=== PATIENT | male | born 1940 | race Caucasian/White ===

== ENCOUNTER 2020-12-27 09:56 | Inpatient (IN) ==
[2020-12-29] MEDS: Acetaminophen 325 MG TABLET PO PRN ×2 (00:01→20:58)
[2020-12-29 05:14] LABS: Basophils % 0.7 %; Eosinophils # 0.3 K/mcL (0.0-0.6); Eosinophils % 7.2 %; Hematocrit 39.6 % (37.5-50.1); Hemoglobin 12.9 g/dL (12.9-16.9); Immature Granulocytes % 0.5 % (0-4); Lymphocytes # 0.5 K/mcL (0.6-4.6); Lymphocytes % 11.8 %; Mean Corpuscular HGB Conc 32.6 g/dL (31.6-35.5); Mean Corpuscular Hemoglobin 29.7 pg (28.0-33.3); Mean Platelet Volume 10.3 fL (9.4-12.4); Monocytes # 0.4 K/mcL (0.0-1.3); Monocytes % 9.1 %; Platelet Count 159 K/mcL (140-400); Red Blood Count 4.35 M/mcL (4.19-5.50); Red Cell Distribution Width 14.2 % (11.5-14.5); Segmented Neutrophils % 70.7 %; White Blood Count 4.2 K/mcL (4.3-11.1)
[2020-12-29 05:31] LABS: BUN/Creatinine Ratio 19 (6-26); Blood Urea Nitrogen 16 mg/dL (8-23); Calcium 8.5 mg/dL (8.6-10.3); Carbon Dioxide 31 mEq/L (23-29); Chloride 106 mEq/L (98-107); Glucose 100 mg/dL (70-105); Osmolality,Calculated 297 (280-300); Potassium 3.3 mEq/L (3.5-5.1); Sodium 143 mEq/L (136-145); eGFR For African Americans > 60 (> 60); eGFR For Non-African Americans > 60 (> 60)
[2020-12-29] MEDS: *HR* Enoxaparin 40 MG/0.4 ML SYRINGE SQ SCH ×2 (06:54→08:33)
[2020-12-29] MEDS: NIFEdipine XL (24 HR) 60 MG TAB.ER.24 PO SCH (08:33)
[2020-12-29] MEDS: lisinopriL 20 MG TABLET PO SCH (08:33)
[2020-12-29] MEDS: Sennosides/Docusate Sodium TABLET PO SCH ×2 (08:33→20:58)
[2020-12-29] MEDS: Cholecalciferol (D-3) 1,000 UNIT (25MCG) TABLET PO SCH (08:33)
[2020-12-29] MEDS: carvediloL 25 MG TABLET PO SCH ×2 (08:33→16:55)
[2020-12-30] MEDS: *HR* Enoxaparin 40 MG/0.4 ML SYRINGE SQ SCH (05:15)
[2020-12-30] MEDS: carvediloL 25 MG TABLET PO SCH ×2 (07:54→16:48)
[2020-12-30] MEDS: lisinopriL 20 MG TABLET PO SCH (07:54)
[2020-12-30] MEDS: NIFEdipine XL (24 HR) 60 MG TAB.ER.24 PO SCH (07:54)
[2020-12-30] MEDS: Cholecalciferol (D-3) 1,000 UNIT (25MCG) TABLET PO SCH (07:54)
[2020-12-30] MEDS: Sennosides/Docusate Sodium TABLET PO SCH ×2 (07:54→20:36)
[2020-12-30] MEDS: Acetaminophen 325 MG TABLET PO PRN (18:07)
[2020-12-30] MEDS: tiZANidine 4 MG TABLET PO PRN (20:36)
[2020-12-31 05:17] LABS: Hematocrit 39.7 % (37.5-50.1); Hemoglobin 12.7 g/dL (12.9-16.9); Mean Corpuscular Hemoglobin 29.2 pg (28.0-33.3); Mean Corpuscular Volume 91.3 fL (83.0-100.0); Platelet Count 151 K/mcL (140-400); Red Blood Count 4.35 M/mcL (4.19-5.50); Red Cell Distribution Width 14.1 % (11.5-14.5); White Blood Count 3.6 K/mcL (4.3-11.1)
[2020-12-31 05:30] LABS: Alanine Aminotransferase 35 Units/L (7-52); Albumin/Globulin Ratio 1.5 (1.1-2.2); Alkaline Phosphatase 74 Units/L (34-104); Aspartate Amino Transferase 19 Units/L (13-39); BUN/Creatinine Ratio 20 (6-26); Bilirubin,Total 0.9 mg/dL (0.3-1.0); Blood Urea Nitrogen 22 mg/dL (8-23); Calcium 8.6 mg/dL (8.6-10.3); Carbon Dioxide 29 mEq/L (23-29); Chloride 108 mEq/L (98-107); Glucose 99 mg/dL (70-105); Osmolality,Calculated 297 (280-300); Sodium 142 mEq/L (136-145); eGFR For African Americans > 60 (> 60); eGFR For Non-African Americans > 60 (> 60)
[2020-12-31] MEDS: Cholecalciferol (D-3) 1,000 UNIT (25MCG) TABLET PO SCH (09:01)
[2020-12-31] MEDS: NIFEdipine XL (24 HR) 60 MG TAB.ER.24 PO SCH (09:01)
[2020-12-31] MEDS: Sennosides/Docusate Sodium TABLET PO SCH ×2 (09:02→20:28)
[2020-12-31] MEDS: carvediloL 25 MG TABLET PO SCH ×2 (09:02→16:31)
[2020-12-31] MEDS: lisinopriL 20 MG TABLET PO SCH (09:03)
[2020-12-31 11:39] LABS: Bilirubin,Urine Negative (Negative); Blood,Urine Trace-intact (Negative); Clarity,Urine Clear (Clear); Color,Urine Yellow (Yellow); Glucose,Urine (UA) Normal (Normal); Ketones,Urine Negative (Negative); Leukocyte Esterase,Urine Negative (Negative); Nitrite,Urine Negative (Negative); Protein,Urine Negative (Neg-Trace); Urobilinogen,Urine Normal (Normal)
[2020-12-31 12:21] LABS: WBC,Urine 0-3 per hpf (0-3)
[2020-12-31] MEDS: Acetaminophen 325 MG TABLET PO PRN (16:31)
[2020-12-31] MEDS: tiZANidine 4 MG TABLET PO PRN (20:29)
[2020-12-31] MEDS: chlorproMAZINE 25 MG TABLET PO PRN (20:29)
[2021-01-01] MEDS: Acetaminophen 325 MG TABLET PO PRN ×3 (05:40→21:28)
[2021-01-01] MEDS: lisinopriL 20 MG TABLET PO SCH (08:03)
[2021-01-01] MEDS: NIFEdipine XL (24 HR) 60 MG TAB.ER.24 PO SCH (08:03)
[2021-01-01] MEDS: Cholecalciferol (D-3) 1,000 UNIT (25MCG) TABLET PO SCH (08:04)
[2021-01-01] MEDS: carvediloL 25 MG TABLET PO SCH ×2 (08:04→15:23)
[2021-01-01] MEDS: Sennosides/Docusate Sodium TABLET PO SCH ×2 (08:04→21:28)
[2021-01-01] MEDS: tiZANidine 4 MG TABLET PO PRN (21:29)
[2021-01-02] MEDS: Cholecalciferol (D-3) 1,000 UNIT (25MCG) TABLET PO SCH (08:59)
[2021-01-02] MEDS: Sennosides/Docusate Sodium TABLET PO SCH ×2 (08:59→20:54)
[2021-01-02] MEDS: carvediloL 25 MG TABLET PO SCH ×2 (08:59→16:26)
[2021-01-02] MEDS: lisinopriL 20 MG TABLET PO SCH (08:59)
[2021-01-02] MEDS: Acetaminophen 325 MG TABLET PO PRN ×2 (08:59→17:57)
[2021-01-02] MEDS: NIFEdipine XL (24 HR) 60 MG TAB.ER.24 PO SCH (08:59)
[2021-01-02] MEDS: tiZANidine 4 MG TABLET PO PRN (19:14)
[2021-01-03] MEDS: chlorproMAZINE 25 MG TABLET PO PRN (02:19)
[2021-01-03] MEDS: Cholecalciferol (D-3) 1,000 UNIT (25MCG) TABLET PO SCH (08:44)
[2021-01-03] MEDS: lisinopriL 20 MG TABLET PO SCH (08:44)
[2021-01-03] MEDS: carvediloL 25 MG TABLET PO SCH ×2 (08:44→17:53)
[2021-01-03] MEDS: Sennosides/Docusate Sodium TABLET PO SCH ×2 (08:44→21:06)
[2021-01-03] MEDS: NIFEdipine XL (24 HR) 60 MG TAB.ER.24 PO SCH (08:44)
[2021-01-03] MEDS: Acetaminophen 325 MG TABLET PO PRN (15:14)
[2021-01-03] MEDS: tiZANidine 4 MG TABLET PO PRN (21:06)
[2021-01-04] MEDS: Acetaminophen 325 MG TABLET PO PRN ×3 (05:11→19:31)
[2021-01-04] MEDS: lisinopriL 20 MG TABLET PO SCH (08:44)
[2021-01-04] MEDS: NIFEdipine XL (24 HR) 60 MG TAB.ER.24 PO SCH (08:44)
[2021-01-04] MEDS: Sennosides/Docusate Sodium TABLET PO SCH ×2 (08:44→19:30)
[2021-01-04] MEDS: carvediloL 25 MG TABLET PO SCH ×2 (08:44→17:12)
[2021-01-04] MEDS: Cholecalciferol (D-3) 1,000 UNIT (25MCG) TABLET PO SCH (08:44)
[2021-01-04] MEDS: tiZANidine 4 MG TABLET PO PRN (19:31)
[2021-01-05] MEDS: Acetaminophen 325 MG TABLET PO PRN ×3 (03:36→18:59)
[2021-01-05] MEDS: lisinopriL 20 MG TABLET PO SCH (08:20)
[2021-01-05] MEDS: NIFEdipine XL (24 HR) 60 MG TAB.ER.24 PO SCH (08:20)
[2021-01-05] MEDS: Cholecalciferol (D-3) 1,000 UNIT (25MCG) TABLET PO SCH (08:20)
[2021-01-05] MEDS: carvediloL 25 MG TABLET PO SCH ×2 (08:20→16:58)
[2021-01-05] MEDS: Sennosides/Docusate Sodium TABLET PO SCH ×2 (08:20→19:52)
[2021-01-05] MEDS: tiZANidine 4 MG TABLET PO PRN (19:52)
[2021-01-06] MEDS: Acetaminophen 325 MG TABLET PO PRN ×3 (01:07→18:00)
[2021-01-06] MEDS: lisinopriL 20 MG TABLET PO SCH (08:32)
[2021-01-06] MEDS: Sennosides/Docusate Sodium TABLET PO SCH ×2 (08:32→21:03)
[2021-01-06] MEDS: NIFEdipine XL (24 HR) 60 MG TAB.ER.24 PO SCH (08:32)
[2021-01-06] MEDS: carvediloL 25 MG TABLET PO SCH ×2 (08:33→16:41)
[2021-01-06] MEDS: Cholecalciferol (D-3) 1,000 UNIT (25MCG) TABLET PO SCH (08:33)
[2021-01-06] MEDS ORDERED: Gabapentin 300 MG CAPSULE PO ONE (10:53)
[2021-01-06] MEDS: tiZANidine 4 MG TABLET PO PRN (21:03)
[2021-01-06] MEDS: chlorproMAZINE 25 MG TABLET PO PRN (21:03)
[2021-01-07] MEDS: lisinopriL 20 MG TABLET PO SCH (08:29)
[2021-01-07] MEDS: Cholecalciferol (D-3) 1,000 UNIT (25MCG) TABLET PO SCH (08:29)
[2021-01-07] MEDS: carvediloL 25 MG TABLET PO SCH ×2 (08:29→17:07)
[2021-01-07] MEDS: NIFEdipine XL (24 HR) 60 MG TAB.ER.24 PO SCH (08:29)
[2021-01-07] MEDS: Sennosides/Docusate Sodium TABLET PO SCH ×2 (08:29→20:13)
[2021-01-07] MEDS: tiZANidine 4 MG TABLET PO PRN ×2 (11:45→20:13)
[2021-01-07] MEDS: Acetaminophen 325 MG TABLET PO PRN ×2 (11:45→17:06)
[2021-01-07] MEDS: polyethylene glycoL 3350 17 GM POWD.PACK PO SCH (17:07)
[2021-01-08] MEDS: Acetaminophen 325 MG TABLET PO PRN ×3 (04:17→18:59)
[2021-01-08 06:04] LABS: Basophils % 1.1 %; Eosinophils # 0.3 K/mcL (0.0-0.6); Eosinophils % 8.1 %; Hematocrit 39.6 % (37.5-50.1); Hemoglobin 12.8 g/dL (12.9-16.9); Immature Granulocytes % 0.6 % (0-4); Lymphocytes # 0.5 K/mcL (0.6-4.6); Lymphocytes % 13.5 %; Mean Corpuscular HGB Conc 32.3 g/dL (31.6-35.5); Mean Corpuscular Hemoglobin 29.6 pg (28.0-33.3); Mean Corpuscular Volume 91.5 fL (83.0-100.0); Mean Platelet Volume 10.7 fL (9.4-12.4); Monocytes # 0.4 K/mcL (0.0-1.3); Monocytes % 11.5 %; Platelet Count 164 K/mcL (140-400); Red Blood Count 4.33 M/mcL (4.19-5.50); Red Cell Distribution Width 14.3 % (11.5-14.5); Segmented Neutrophils % 65.2 %; White Blood Count 3.6 K/mcL (4.3-11.1)
[2021-01-08 06:15] LABS: Neutrophils # 2.4 K/mcL (1.6-8.9)
[2021-01-08 06:24] LABS: BUN/Creatinine Ratio 20 (6-26); Blood Urea Nitrogen 16 mg/dL (8-23); Calcium 8.8 mg/dL (8.6-10.3); Carbon Dioxide 27 mEq/L (23-29); Chloride 107 mEq/L (98-107); Glucose 105 mg/dL (70-105); Osmolality,Calculated 294 (280-300); Potassium 3.8 mEq/L (3.5-5.1); Sodium 141 mEq/L (136-145); eGFR For African Americans > 60 (> 60); eGFR For Non-African Americans > 60 (> 60)
[2021-01-08] MEDS: Cholecalciferol (D-3) 1,000 UNIT (25MCG) TABLET PO SCH (09:33)
[2021-01-08] MEDS: NIFEdipine XL (24 HR) 60 MG TAB.ER.24 PO SCH (09:33)
[2021-01-08] MEDS: carvediloL 25 MG TABLET PO SCH ×2 (09:33→16:27)
[2021-01-08] MEDS: lisinopriL 20 MG TABLET PO SCH (09:34)
[2021-01-08] MEDS: Sennosides/Docusate Sodium TABLET PO SCH ×2 (09:34→21:29)
[2021-01-08] MEDS: polyethylene glycoL 3350 17 GM POWD.PACK PO SCH (09:34)
[2021-01-08] MEDS: tiZANidine 4 MG TABLET PO PRN ×2 (12:54→21:29)
[2021-01-08] MEDS: chlorproMAZINE 25 MG TABLET PO PRN (21:29)
[2021-01-09] MEDS: Cholecalciferol (D-3) 1,000 UNIT (25MCG) TABLET PO SCH (09:05)
[2021-01-09] MEDS: tiZANidine 4 MG TABLET PO PRN ×2 (09:05→16:30)
[2021-01-09] MEDS: lisinopriL 20 MG TABLET PO SCH (09:05)
[2021-01-09] MEDS: carvediloL 25 MG TABLET PO SCH ×2 (09:05→16:30)
[2021-01-09] MEDS: Sennosides/Docusate Sodium TABLET PO SCH ×2 (09:05→22:41)
[2021-01-09] MEDS: Acetaminophen 325 MG TABLET PO PRN ×3 (09:05→22:41)
[2021-01-09] MEDS: NIFEdipine XL (24 HR) 60 MG TAB.ER.24 PO SCH (09:05)
[2021-01-09] MEDS: polyethylene glycoL 3350 17 GM POWD.PACK PO SCH (09:06)
[2021-01-09] MEDS ORDERED: 0.9 % Sodium Chloride 1,000 ML IVC SCH (19:00)
[2021-01-09 19:13] LABS: Basophils # 0.1 K/mcL (0.0-0.2); Basophils % 1.3 %; Eosinophils # 0.3 K/mcL (0.0-0.6); Eosinophils % 6.7 %; Hematocrit 37.5 % (37.5-50.1); Hemoglobin 12.1 g/dL (12.9-16.9); Immature Granulocytes % 0.5 % (0-4); Lymphocytes # 0.5 K/mcL (0.6-4.6); Lymphocytes % 13.2 %; Mean Corpuscular HGB Conc 32.3 g/dL (31.6-35.5); Mean Corpuscular Hemoglobin 29.3 pg (28.0-33.3); Mean Corpuscular Volume 90.8 fL (83.0-100.0); Mean Platelet Volume 10.7 fL (9.4-12.4); Monocytes # 0.4 K/mcL (0.0-1.3); Monocytes % 11.6 %; Neutrophils # 2.5 K/mcL (1.6-8.9); Platelet Count 160 K/mcL (140-400); Red Blood Count 4.13 M/mcL (4.19-5.50); Red Cell Distribution Width 14.3 % (11.5-14.5); Segmented Neutrophils % 66.7 %; White Blood Count 3.7 K/mcL (4.3-11.1)
[2021-01-09 19:24] LABS: BUN/Creatinine Ratio 22 (6-26); Blood Urea Nitrogen 17 mg/dL (8-23); Calcium 8.5 mg/dL (8.6-10.3); Carbon Dioxide 26 mEq/L (23-29); Chloride 109 mEq/L (98-107); Glucose 143 mg/dL (70-105); Osmolality,Calculated 296 (280-300); Potassium 3.9 mEq/L (3.5-5.1); Sodium 141 mEq/L (136-145); eGFR For African Americans > 60 (> 60); eGFR For Non-African Americans > 60 (> 60)
[2021-01-09] MEDS: chlorproMAZINE 25 MG TABLET PO PRN (22:41)
[2021-01-10] MEDS: carvediloL 25 MG TABLET PO SCH ×2 (08:12→15:48)
[2021-01-10] MEDS: lisinopriL 20 MG TABLET PO SCH (08:12)
[2021-01-10] MEDS: Sennosides/Docusate Sodium TABLET PO SCH ×2 (08:12→20:55)
[2021-01-10] MEDS: Cholecalciferol (D-3) 1,000 UNIT (25MCG) TABLET PO SCH (08:12)
[2021-01-10] MEDS: NIFEdipine XL (24 HR) 60 MG TAB.ER.24 PO SCH (08:12)
[2021-01-10] MEDS: polyethylene glycoL 3350 17 GM POWD.PACK PO SCH (08:12)
[2021-01-10] MEDS: Acetaminophen 325 MG TABLET PO PRN ×2 (13:26→20:55)
[2021-01-10] MEDS: Gabapentin 100 MG CAPSULE PO SCH ×2 (15:48→20:55)
[2021-01-11] MEDS: tiZANidine 4 MG TABLET PO PRN (00:28)
[2021-01-11] MEDS: Sennosides/Docusate Sodium TABLET PO SCH ×2 (08:10→20:12)
[2021-01-11] MEDS: lisinopriL 20 MG TABLET PO SCH (08:10)
[2021-01-11] MEDS: Cholecalciferol (D-3) 1,000 UNIT (25MCG) TABLET PO SCH (08:10)
[2021-01-11] MEDS: polyethylene glycoL 3350 17 GM POWD.PACK PO SCH (08:10)
[2021-01-11] MEDS: NIFEdipine XL (24 HR) 60 MG TAB.ER.24 PO SCH (08:10)
[2021-01-11] MEDS: Gabapentin 100 MG CAPSULE PO SCH ×3 (08:10→20:13)
[2021-01-11] MEDS: carvediloL 25 MG TABLET PO SCH ×2 (08:10→16:45)
[2021-01-11] MEDS: Acetaminophen 325 MG TABLET PO PRN ×2 (12:38→18:38)
[2021-01-12] MEDS: Cholecalciferol (D-3) 1,000 UNIT (25MCG) TABLET PO SCH (08:46)
[2021-01-12] MEDS: Sennosides/Docusate Sodium TABLET PO SCH ×2 (08:46→20:06)
[2021-01-12] MEDS: NIFEdipine XL (24 HR) 60 MG TAB.ER.24 PO SCH (08:46)
[2021-01-12] MEDS: carvediloL 25 MG TABLET PO SCH ×2 (08:46→16:59)
[2021-01-12] MEDS: polyethylene glycoL 3350 17 GM POWD.PACK PO SCH (08:46)
[2021-01-12] MEDS: Gabapentin 100 MG CAPSULE PO SCH ×4 (08:47→20:06)
[2021-01-12] MEDS: tiZANidine 4 MG TABLET PO PRN (08:47)
[2021-01-12] MEDS: lisinopriL 20 MG TABLET PO SCH (08:47)
[2021-01-12] MEDS ORDERED: 0.9 % Sodium Chloride 1,000 ML ONE ×2 (10:10→11:51)
[2021-01-12 10:26] LABS: Hematocrit 38.2 % (37.5-50.1); Hemoglobin 12.2 g/dL (12.9-16.9); Mean Corpuscular HGB Conc 31.9 g/dL (31.6-35.5); Mean Corpuscular Hemoglobin 29.1 pg (28.0-33.3); Mean Corpuscular Volume 91.2 fL (83.0-100.0); Mean Platelet Volume 10.4 fL (9.4-12.4); Platelet Count 196 K/mcL (140-400); Red Blood Count 4.19 M/mcL (4.19-5.50); Red Cell Distribution Width 14.1 % (11.5-14.5); White Blood Count 4.3 K/mcL (4.3-11.1)
[2021-01-12] MEDS ORDERED: 0.9 % Sodium Chloride 500 ML IV ONE (10:30)
[2021-01-12 10:37] LABS: Alanine Aminotransferase 27 Units/L (7-52); Albumin 3.2 g/dL (3.5-5.7); Albumin/Globulin Ratio 1.6 (1.1-2.2); Alkaline Phosphatase 79 Units/L (34-104); Aspartate Amino Transferase 14 Units/L (13-39); BUN/Creatinine Ratio 20 (6-26); Bilirubin,Total 0.8 mg/dL (0.3-1.0); Blood Urea Nitrogen 18 mg/dL (8-23); Calcium 8.4 mg/dL (8.6-10.3); Carbon Dioxide 23 mEq/L (23-29); Chloride 107 mEq/L (98-107); Glucose 151 mg/dL (70-105); Magnesium 1.7 mg/dL (1.6-2.6); Osmolality,Calculated 291 (280-300); Potassium 3.9 mEq/L (3.5-5.1); Sodium 138 mEq/L (136-145); Total Protein 5.2 g/dL (6.4-8.9); eGFR For African Americans > 60 (> 60); eGFR For Non-African Americans > 60 (> 60)
[2021-01-12] MEDS ORDERED: 0.9 % Sodium Chloride 500 ML IVC PRN (10:54)
[2021-01-12 11:11] LABS: ABG Base Excess 0 mEq/L (-2 to 3); ABG HCO3 26 mEq/L (21-27); ABG Oxygen Saturation 97 % (95-98); ABG PCO2 50 mmHg (35-45); ABG PH 7.33 pH Units (7.32-7.45); ABG PO2 96 mmHg (85-104); ABG TCO2 28 mEq/L (20-26)
[2021-01-12] MEDS ORDERED: 0.9 % Sodium Chloride 1,000 ML IVC SCH ×2 (11:45→17:34)
[2021-01-12] MEDS ORDERED: carvediloL 25 MG TABLET PO SCH (17:00)
[2021-01-12] MEDS: Acetaminophen 325 MG TABLET PO PRN ×2 (17:46→22:30)
[2021-01-13] MEDS: carvediloL 25 MG TABLET PO SCH ×2 (08:32→17:03)
[2021-01-13] MEDS: Gabapentin 100 MG CAPSULE PO SCH ×3 (08:33→20:56)
[2021-01-13] MEDS: Cholecalciferol (D-3) 1,000 UNIT (25MCG) TABLET PO SCH (08:33)
[2021-01-13] MEDS: NIFEdipine XL (24 HR) 60 MG TAB.ER.24 PO SCH (08:33)
[2021-01-13] MEDS: lisinopriL 20 MG TABLET PO SCH (08:34)
[2021-01-13] MEDS: polyethylene glycoL 3350 17 GM POWD.PACK PO SCH (08:34)
[2021-01-13] MEDS: Sennosides/Docusate Sodium TABLET PO SCH ×2 (08:34→20:56)
[2021-01-13] MEDS: Acetaminophen 325 MG TABLET PO PRN ×2 (17:35→20:55)
[2021-01-14] MEDS: Acetaminophen 325 MG TABLET PO PRN ×3 (02:56→23:58)
[2021-01-14] MEDS: polyethylene glycoL 3350 17 GM POWD.PACK PO SCH (08:27)
[2021-01-14] MEDS: Gabapentin 100 MG CAPSULE PO SCH ×3 (08:29→20:43)
[2021-01-14] MEDS: NIFEdipine XL (24 HR) 60 MG TAB.ER.24 PO SCH (08:29)
[2021-01-14] MEDS: lisinopriL 20 MG TABLET PO SCH (08:29)
[2021-01-14] MEDS: Cholecalciferol (D-3) 1,000 UNIT (25MCG) TABLET PO SCH (08:29)
[2021-01-14] MEDS: Sennosides/Docusate Sodium TABLET PO SCH ×2 (08:29→20:43)
[2021-01-14] MEDS: carvediloL 25 MG TABLET PO SCH ×2 (08:30→15:51)
[2021-01-15] MEDS: polyethylene glycoL 3350 17 GM POWD.PACK PO SCH (08:39)
[2021-01-15] MEDS: carvediloL 25 MG TABLET PO SCH ×2 (08:40→16:53)
[2021-01-15] MEDS: NIFEdipine XL (24 HR) 60 MG TAB.ER.24 PO SCH (08:40)
[2021-01-15] MEDS: Gabapentin 100 MG CAPSULE PO SCH ×3 (08:40→20:32)
[2021-01-15] MEDS: Cholecalciferol (D-3) 1,000 UNIT (25MCG) TABLET PO SCH (08:40)
[2021-01-15] MEDS: lisinopriL 20 MG TABLET PO SCH (08:40)
[2021-01-15] MEDS: Sennosides/Docusate Sodium TABLET PO SCH ×2 (08:40→20:32)
[2021-01-15] MEDS: Acetaminophen 325 MG TABLET PO PRN ×2 (11:43→20:32)
[2021-01-16] MEDS: Sennosides/Docusate Sodium TABLET PO SCH ×2 (08:56→19:56)
[2021-01-16] MEDS: Cholecalciferol (D-3) 1,000 UNIT (25MCG) TABLET PO SCH (08:56)
[2021-01-16] MEDS: carvediloL 25 MG TABLET PO SCH ×2 (08:56→17:02)
[2021-01-16] MEDS: polyethylene glycoL 3350 17 GM POWD.PACK PO SCH (08:56)
[2021-01-16] MEDS: lisinopriL 20 MG TABLET PO SCH (08:57)
[2021-01-16] MEDS: Gabapentin 100 MG CAPSULE PO SCH ×3 (08:57→19:56)
[2021-01-16] MEDS: NIFEdipine XL (24 HR) 60 MG TAB.ER.24 PO SCH (08:57)
[2021-01-16] MEDS: Acetaminophen 325 MG TABLET PO PRN (19:56)
[2021-01-17] MEDS: NIFEdipine XL (24 HR) 60 MG TAB.ER.24 PO SCH (08:05)
[2021-01-17] MEDS: Gabapentin 100 MG CAPSULE PO SCH ×3 (08:05→20:09)
[2021-01-17] MEDS: Sennosides/Docusate Sodium TABLET PO SCH ×2 (08:06→20:08)
[2021-01-17] MEDS: lisinopriL 20 MG TABLET PO SCH (08:06)
[2021-01-17] MEDS: Cholecalciferol (D-3) 1,000 UNIT (25MCG) TABLET PO SCH (08:06)
[2021-01-17] MEDS: polyethylene glycoL 3350 17 GM POWD.PACK PO SCH (08:06)
[2021-01-17] MEDS: carvediloL 25 MG TABLET PO SCH ×2 (08:06→16:35)
[2021-01-17] MEDS: Acetaminophen 325 MG TABLET PO PRN (20:10)
[2021-01-18 04:46] LABS: Hematocrit 39.3 % (37.5-50.1); Hemoglobin 12.9 g/dL (12.9-16.9); Mean Corpuscular HGB Conc 32.8 g/dL (31.6-35.5); Mean Corpuscular Hemoglobin 29.5 pg (28.0-33.3); Mean Corpuscular Volume 89.7 fL (83.0-100.0); Mean Platelet Volume 10.4 fL (9.4-12.4); Platelet Count 176 K/mcL (140-400); Red Blood Count 4.38 M/mcL (4.19-5.50); Red Cell Distribution Width 14.1 % (11.5-14.5); White Blood Count 3.9 K/mcL (4.3-11.1)
[2021-01-18] MEDS: Acetaminophen 325 MG TABLET PO PRN ×3 (04:56→22:39)
[2021-01-18 05:02] LABS: Alanine Aminotransferase 19 Units/L (7-52); Albumin 3.3 g/dL (3.5-5.7); Albumin/Globulin Ratio 1.7 (1.1-2.2); Alkaline Phosphatase 93 Units/L (34-104); Aspartate Amino Transferase 12 Units/L (13-39); BUN/Creatinine Ratio 22 (6-26); Bilirubin,Total 1.2 mg/dL (0.3-1.0); Blood Urea Nitrogen 17 mg/dL (8-23); Calcium 8.4 mg/dL (8.6-10.3); Carbon Dioxide 27 mEq/L (23-29); Chloride 107 mEq/L (98-107); Glucose 100 mg/dL (70-105); Magnesium 1.9 mg/dL (1.6-2.6); Osmolality,Calculated 292 (280-300); Potassium 3.7 mEq/L (3.5-5.1); Sodium 140 mEq/L (136-145); Total Protein 5.3 g/dL (6.4-8.9); eGFR For African Americans > 60 (> 60); eGFR For Non-African Americans > 60 (> 60)
[2021-01-18] MEDS: NIFEdipine XL (24 HR) 60 MG TAB.ER.24 PO SCH (08:26)
[2021-01-18] MEDS: Cholecalciferol (D-3) 1,000 UNIT (25MCG) TABLET PO SCH (08:26)
[2021-01-18] MEDS: Gabapentin 100 MG CAPSULE PO SCH ×3 (08:26→20:12)
[2021-01-18] MEDS: lisinopriL 20 MG TABLET PO SCH (08:26)
[2021-01-18] MEDS: carvediloL 25 MG TABLET PO SCH ×2 (08:26→16:54)
[2021-01-18] MEDS: Sennosides/Docusate Sodium TABLET PO SCH ×2 (08:26→20:12)
[2021-01-18] MEDS: polyethylene glycoL 3350 17 GM POWD.PACK PO SCH (08:27)
[2021-01-19] MEDS: Acetaminophen 325 MG TABLET PO PRN ×3 (04:50→17:43)
[2021-01-19] MEDS: NIFEdipine XL (24 HR) 60 MG TAB.ER.24 PO SCH (08:33)
[2021-01-19] MEDS: Cholecalciferol (D-3) 1,000 UNIT (25MCG) TABLET PO SCH (08:34)
[2021-01-19] MEDS: lisinopriL 20 MG TABLET PO SCH (08:34)
[2021-01-19] MEDS: polyethylene glycoL 3350 17 GM POWD.PACK PO SCH (08:34)
[2021-01-19] MEDS: Sennosides/Docusate Sodium TABLET PO SCH ×2 (08:34→20:46)
[2021-01-19] MEDS: carvediloL 25 MG TABLET PO SCH ×2 (08:34→16:03)
[2021-01-19] MEDS: Gabapentin 100 MG CAPSULE PO SCH ×3 (08:34→20:46)
[2021-01-20] MEDS: Acetaminophen 325 MG TABLET PO PRN ×3 (01:46→18:56)
[2021-01-20] MEDS: lisinopriL 20 MG TABLET PO SCH (08:32)
[2021-01-20] MEDS: carvediloL 25 MG TABLET PO SCH ×2 (08:32→16:08)
[2021-01-20] MEDS: NIFEdipine XL (24 HR) 60 MG TAB.ER.24 PO SCH (08:32)
[2021-01-20] MEDS: Gabapentin 100 MG CAPSULE PO SCH ×3 (08:32→20:45)
[2021-01-20] MEDS: Cholecalciferol (D-3) 1,000 UNIT (25MCG) TABLET PO SCH (08:32)
[2021-01-20] MEDS: Sennosides/Docusate Sodium TABLET PO SCH (08:33)
[2021-01-20] MEDS: polyethylene glycoL 3350 17 GM POWD.PACK PO SCH (08:34)
[2021-01-20] MEDS ORDERED: polyethylene glycoL 3350 17 GM POWD.PACK PO PRN (16:18)
[2021-01-20] MEDS ORDERED: Sennosides/Docusate Sodium TABLET PO PRN (16:18)
[2021-01-21] MEDS: Cholecalciferol (D-3) 1,000 UNIT (25MCG) TABLET PO SCH (08:19)
[2021-01-21] MEDS: lisinopriL 20 MG TABLET PO SCH (08:19)
[2021-01-21] MEDS: NIFEdipine XL (24 HR) 60 MG TAB.ER.24 PO SCH (08:20)
[2021-01-21] MEDS: carvediloL 25 MG TABLET PO SCH ×2 (08:21→17:03)
[2021-01-21] MEDS: Gabapentin 100 MG CAPSULE PO SCH ×3 (08:23→20:15)
[2021-01-21] MEDS: Acetaminophen 325 MG TABLET PO PRN ×2 (17:03→23:24)
[2021-01-22] MEDS: carvediloL 25 MG TABLET PO SCH ×2 (08:40→17:34)
[2021-01-22] MEDS: Cholecalciferol (D-3) 1,000 UNIT (25MCG) TABLET PO SCH (08:41)
[2021-01-22] MEDS: Gabapentin 100 MG CAPSULE PO SCH ×3 (08:41→19:58)
[2021-01-22] MEDS: Acetaminophen 325 MG TABLET PO PRN ×2 (08:42→17:55)
[2021-01-22] MEDS: NIFEdipine XL (24 HR) 60 MG TAB.ER.24 PO SCH (08:43)
[2021-01-22] MEDS: lisinopriL 20 MG TABLET PO SCH (08:44)
[2021-01-23] MEDS: Acetaminophen 325 MG TABLET PO PRN ×3 (00:48→20:26)
[2021-01-23] MEDS: Cholecalciferol (D-3) 1,000 UNIT (25MCG) TABLET PO SCH (09:24)
[2021-01-23] MEDS: Gabapentin 100 MG CAPSULE PO SCH ×3 (09:25→20:26)
[2021-01-23] MEDS: carvediloL 25 MG TABLET PO SCH ×2 (09:25→15:34)
[2021-01-23] MEDS: lisinopriL 20 MG TABLET PO SCH (09:25)
[2021-01-23] MEDS: NIFEdipine XL (24 HR) 60 MG TAB.ER.24 PO SCH (09:25)
[2021-01-23] MEDS: chlorproMAZINE 25 MG TABLET PO PRN (20:26)
[2021-01-24] MEDS: Cholecalciferol (D-3) 1,000 UNIT (25MCG) TABLET PO SCH (09:42)
[2021-01-24] MEDS: NIFEdipine XL (24 HR) 60 MG TAB.ER.24 PO SCH (09:42)
[2021-01-24] MEDS: lisinopriL 20 MG TABLET PO SCH (09:42)
[2021-01-24] MEDS: carvediloL 25 MG TABLET PO SCH ×2 (09:42→15:12)
[2021-01-24] MEDS: Gabapentin 100 MG CAPSULE PO SCH ×3 (11:09→20:27)
[2021-01-24] MEDS: Acetaminophen 325 MG TABLET PO PRN ×2 (15:12→20:26)
[2021-01-24] MEDS: chlorproMAZINE 25 MG TABLET PO PRN (20:27)
[2021-01-25] MEDS: carvediloL 25 MG TABLET PO SCH ×2 (08:08→16:43)
[2021-01-25] MEDS: NIFEdipine XL (24 HR) 60 MG TAB.ER.24 PO SCH (08:08)
[2021-01-25] MEDS: Gabapentin 100 MG CAPSULE PO SCH ×3 (08:09→20:02)
[2021-01-25] MEDS: lisinopriL 20 MG TABLET PO SCH (08:09)
[2021-01-25] MEDS: Cholecalciferol (D-3) 1,000 UNIT (25MCG) TABLET PO SCH (08:09)
[2021-01-25] MEDS: Acetaminophen 325 MG TABLET PO PRN ×2 (13:18→20:03)
[2021-01-26] MEDS: Acetaminophen 325 MG TABLET PO PRN ×3 (01:52→22:00)
[2021-01-26 04:46] LABS: Basophils % 0.8 %; Eosinophils # 0.3 K/mcL (0.0-0.6); Eosinophils % 5.5 %; Hematocrit 39.6 % (37.5-50.1); Hemoglobin 12.9 g/dL (12.9-16.9); Immature Granulocytes % 0.2 % (0-4); Lymphocytes # 0.6 K/mcL (0.6-4.6); Mean Corpuscular HGB Conc 32.6 g/dL (31.6-35.5); Mean Corpuscular Hemoglobin 29.6 pg (28.0-33.3); Mean Corpuscular Volume 90.8 fL (83.0-100.0); Mean Platelet Volume 10.6 fL (9.4-12.4); Monocytes # 0.6 K/mcL (0.0-1.3); Monocytes % 11.8 %; Neutrophils # 3.4 K/mcL (1.6-8.9); Platelet Count 169 K/mcL (140-400); Red Blood Count 4.36 M/mcL (4.19-5.50); Red Cell Distribution Width 14.2 % (11.5-14.5); Segmented Neutrophils % 69.7 %; White Blood Count 4.9 K/mcL (4.3-11.1)
[2021-01-26 05:00] LABS: BUN/Creatinine Ratio 25 (6-26); Blood Urea Nitrogen 21 mg/dL (8-23); Calcium 8.5 mg/dL (8.6-10.3); Carbon Dioxide 28 mEq/L (23-29); Chloride 107 mEq/L (98-107); Glucose 106 mg/dL (70-105); Osmolality,Calculated 293 (280-300); Potassium 3.6 mEq/L (3.5-5.1); Sodium 140 mEq/L (136-145); eGFR For African Americans > 60 (> 60); eGFR For Non-African Americans > 60 (> 60)
[2021-01-26] MEDS: Cholecalciferol (D-3) 1,000 UNIT (25MCG) TABLET PO SCH (08:36)
[2021-01-26] MEDS: NIFEdipine XL (24 HR) 60 MG TAB.ER.24 PO SCH (08:36)
[2021-01-26] MEDS: carvediloL 25 MG TABLET PO SCH ×2 (08:36→16:07)
[2021-01-26] MEDS: Gabapentin 100 MG CAPSULE PO SCH ×3 (08:36→21:13)
[2021-01-26] MEDS: lisinopriL 20 MG TABLET PO SCH (08:37)
[2021-01-27] MEDS: Cholecalciferol (D-3) 1,000 UNIT (25MCG) TABLET PO SCH (08:00)
[2021-01-27] MEDS: carvediloL 25 MG TABLET PO SCH ×2 (08:00→17:33)
[2021-01-27] MEDS: lisinopriL 20 MG TABLET PO SCH (08:00)
[2021-01-27] MEDS: Gabapentin 100 MG CAPSULE PO SCH ×3 (08:00→20:11)
[2021-01-27] MEDS: NIFEdipine XL (24 HR) 60 MG TAB.ER.24 PO SCH (08:00)
[2021-01-27] MEDS: Acetaminophen 325 MG TABLET PO PRN ×2 (15:57→22:09)
[2021-01-28 07:08] VITALS: BP 132/86
[2021-01-28] MEDS: Gabapentin 100 MG CAPSULE PO SCH (07:46)
[2021-01-28] MEDS: lisinopriL 20 MG TABLET PO SCH (07:46)
[2021-01-28] MEDS: carvediloL 25 MG TABLET PO SCH (07:46)
[2021-01-28] MEDS: NIFEdipine XL (24 HR) 60 MG TAB.ER.24 PO SCH (07:47)
[2021-01-28] MEDS: Cholecalciferol (D-3) 1,000 UNIT (25MCG) TABLET PO SCH (07:47)
== END 2021-01-28 12:15 | disposition home health service (06) | DRG 57 ==
LOC: INPGRE 12-28 23:16
PROVIDERS: ADMIT Family Medicine; ATTEND Family Medicine